=== PATIENT | female | born 1955 | race Caucasian/White ===

== ENCOUNTER 2021-07-24 10:29 | Emergency (ER) | payer OTHER ==
[~2021-07-24] VITALS: Ht 160 cm; Wt 66.7 kg
[2021-07-24] MEDS ORDERED: LIPITOR20 MG PO (10:44)
[2021-07-24] MEDS ORDERED: NORVASC5 MG PO (10:44)
[2021-07-24] MEDS ORDERED: ADULT LOW DOSE81 M1 (10:45)
== END 2021-07-24 13:56 | disposition home or self-care (01) ==
LOC: ER 10:29 → EDBD 10:36 → ER 10:36
DX: S01.82XA Laceration with foreign body of other part of head, initial encounter (principal); W10.9XXA Fall (on) (from) unspecified stairs and steps, initial encounter; Y93.9 Activity, unspecified; Y92.214 College as the place of occurrence of the external cause

== ENCOUNTER 2021-08-01 09:23 | Emergency (ER) | payer OTHER ==
[~2021-08-01] VITALS: Ht 160 cm; Wt 65.8 kg
[~2021-08-01 09:23] MED LIST: ADULT LOW DOSE81 M1; LIPITOR20 MG PO; NORVASC5 MG PO
[2021-08-01] MEDS ORDERED: VITAMIN D31 ML MC (09:31)
== END 2021-08-01 10:11 | disposition home or self-care (01) ==
LOC: ER 09:23
DX: Z48.02 Encounter for removal of sutures (principal)